=== PATIENT | female | born 1955 | race Caucasian/White ===

== ENCOUNTER → 2017-02-07 | Outpatient (CLI) | payer BC ==
[~2017-02-07] MED LIST: CIPRO500 MG PO; COLACE100 MG PO; FLAGYL500 MG PO; LEVAQUIN25 MG/M1; LEVOFLOXACIN500 MG PO; MIRALAX17 GM/PACK PO; PAXIL10 MG PO; REMERON15 MG
[2017-02-07 13:03] LABS: BASO # 0.1 10*3/uL (0.0-0.1); BASO % 0.9 % (0.0-1.0); EOS # 0.2 10*3/uL (0.0-0.4); EOS % 2.3 % (1.0-4.0); HEMATOCRIT 43.5 % (37.0-47.0); LYMPH # 1.8 10*3/uL (1.3-4.4); LYMPH % 24.2 % (27.0-41.0); MEAN CORPUSCULAR HGB 27.7 pg (27.0-31.0); MEAN CORPUSCULAR HGB CONC 32.2 g/dl (33.0-37.0); MEAN PLATELET VOLUME 9.7 fl (9.6-12.3); MONO # 0.7 10*3/uL (0.1-1.0); MONO % 8.9 % (3.0-9.0); NEUT # 4.7 10*3/uL (2.3-7.9); NEUT % 63.4 % (47.0-73.0); PLATELET COUNT AUTOMATED 239 10*3/uL (130-400); RED BLOOD COUNT 5.06 10*6/uL (4.10-5.10); RED CELL DISTRI WIDTH 12.5 % (0-14.5); WHITE BLOOD COUNT 7.4 10*3/uL (4.8-10.8)
[2017-02-07 13:31] LABS: ALBUMIN 3.8 gm/dl (3.1-4.5); ALKALINE PHOSPHATASE 88 U/L (45-117); BILIRUBIN, TOTAL 0.7 mg/dl (0.2-1.0); BUN 10 mg/dl (7-24); CARBON DIOXIDE 28 mmol/L (21-32); CHLORIDE 108 mmol/L (98-107); CHOLESTEROL 134 mg/dL (<200); EST GLOM FILT AFRICAN AMERICAN > 60 ml/min; GLUCOSE 88 mg/dL (65-99); HDL CHOLESTEROL 42 mg/dl (40-60); LDL CHOLESTEROL 65 mg/dL (9-159); POTASSIUM 4.5 mmol/L (3.5-5.1); SGOT/AST 20 IU/L (3-35); SGPT/ALT 22 U/L (12-78); SODIUM 144 mmol/L (136-145); TOTAL PROTEIN 7.8 gm/dL (6.4-8.2); TRIGLYCERIDES 133 mg/dl (<150); VLDL CHOLESTEROL 27 mg/dL (6-40)
== END | disposition home or self-care (01) ==
LOC: LAB 12:40
PROVIDERS: Family Medicine
DX: Z00.00 Encounter for general adult medical examination without abnormal findings (principal); K57.90 Diverticulosis of intestine, part unspecified, without perforation or abscess without bleeding

== ENCOUNTER 2017-03-22 20:14 | Emergency (ER) | payer BC ==
[~2017-03-22] VITALS: Ht 157.4 cm; Wt 61.2 kg
[2017-03-22] MEDS ORDERED: LEVOTHYROXIN0.025 M1 PO (20:36)
[2017-03-22] MEDS ORDERED: OCEAN104 ML NAS (20:46)
== END 2017-03-22 20:55 | disposition home or self-care (01) ==
LOC: ED 20:14
DX: R04.0 Epistaxis (principal)

== ENCOUNTER 2017-03-24 06:38 | Emergency (ER) | payer BC ==
[~2017-03-24] VITALS: Ht 157.4 cm; Wt 61.2 kg
[~2017-03-24 06:38] MED LIST changes: +LEVOTHYROXIN0.025 M1 PO; +OCEAN104 ML NAS
== END 2017-03-24 08:47 | disposition home or self-care (01) ==
LOC: ED 06:38
DX: R04.0 Epistaxis (principal); Z79.899 Other long term (current) drug therapy

== ENCOUNTER 2017-04-08 14:25 | Emergency (ER) | payer BC ==
[~2017-04-08] VITALS: Ht 157.4 cm; Wt 59.0 kg
[2017-04-08 14:47] LABS: BASO # 0.1 10*3/uL (0.0-0.1); BASO % 0.6 % (0.0-1.0); EOS % 0.3 % (1.0-4.0); HEMATOCRIT 40.1 % (37.0-47.0); HEMOGLOBIN 12.9 g/dl (12.0-16.0); IG # 0.1 10*3/uL (0.0-0.1); LYMPH # 1.1 10*3/uL (1.3-4.4); LYMPH % 9.8 % (27.0-41.0); MEAN CELL VOLUME 86.4 fl (81.0-99.0); MEAN CORPUSCULAR HGB 27.8 pg (27.0-31.0); MEAN CORPUSCULAR HGB CONC 32.2 g/dl (33.0-37.0); MEAN PLATELET VOLUME 9.6 fl (9.6-12.3); MONO # 0.5 10*3/uL (0.1-1.0); MONO % 4.1 % (3.0-9.0); NEUT # 9.6 10*3/uL (2.3-7.9); NEUT % 84.8 % (47.0-73.0); PLATELET COUNT AUTOMATED 323 10*3/uL (130-400); RED BLOOD COUNT 4.64 10*6/uL (4.10-5.10); RED CELL DISTRI WIDTH 13.1 % (0-14.5); WHITE BLOOD COUNT 11.3 10*3/uL (4.8-10.8)
[2017-04-08 14:57] LABS: PROTHROMBIN TIME 10.4 SECONDS (9.0-12.4)
[2017-04-08 15:04] LABS: ALBUMIN 4.2 gm/dl (3.1-4.5); ALKALINE PHOSPHATASE 105 U/L (45-117); BILIRUBIN, TOTAL 0.4 mg/dl (0.2-1.0); BUN 11 mg/dl (7-24); CARBON DIOXIDE 25 mmol/L (21-32); CHLORIDE 105 mmol/L (98-107); EST GLOM FILT AFRICAN AMERICAN > 60 ml/min; GLUCOSE 122 mg/dL (65-99); POTASSIUM 4.1 mmol/L (3.5-5.1); SGOT/AST 19 IU/L (3-35); SGPT/ALT 19 U/L (12-78); SODIUM 139 mmol/L (136-145); TOTAL PROTEIN 8.1 gm/dL (6.4-8.2)
== END 2017-04-08 20:13 | disposition home or self-care (01) ==
LOC: ED 14:25
PROVIDERS: Nurse Practitioner Family
DX: R04.0 Epistaxis (principal); R03.0 Elevated blood-pressure reading, without diagnosis of hypertension; Z79.899 Other long term (current) drug therapy

== ENCOUNTER 2017-04-10 11:31 | Emergency (ER) | payer BC ==
[~2017-04-10] VITALS: Ht 157.4 cm; Wt 59.0 kg
[2017-04-10 12:28] LABS: BASO # 0.1 10*3/uL (0.0-0.1); BASO % 0.5 % (0.0-1.0); EOS % 0.3 % (1.0-4.0); IG # 0.1 10*3/uL (0.0-0.1); LYMPH # 1.1 10*3/uL (1.3-4.4); LYMPH % 10.2 % (27.0-41.0); MEAN CELL VOLUME 84.8 fl (81.0-99.0); MEAN PLATELET VOLUME 9.6 fl (9.6-12.3); MONO # 0.7 10*3/uL (0.1-1.0); MONO % 6.8 % (3.0-9.0); NEUT # 8.4 10*3/uL (2.3-7.9); NEUT % 81.7 % (47.0-73.0); PLATELET COUNT AUTOMATED 243 10*3/uL (130-400); RED BLOOD COUNT 3.82 10*6/uL (4.10-5.10); RED CELL DISTRI WIDTH 12.7 % (0-14.5); WHITE BLOOD COUNT 10.3 10*3/uL (4.8-10.8)
[2017-04-10 12:30] LABS: HEMATOCRIT 32.4 % (37.0-47.0); HEMOGLOBIN 10.7 g/dl (12.0-16.0)
[2017-04-10 12:38] LABS: PROTHROMBIN TIME 10.7 SECONDS (9.0-12.4)
[2017-04-10 12:39] LABS: ALBUMIN 3.7 gm/dl (3.1-4.5); ALKALINE PHOSPHATASE 88 U/L (45-117); BILIRUBIN, TOTAL 0.5 mg/dl (0.2-1.0); BUN 9 mg/dl (7-24); C-REACTIVE PROTEIN 0.43 MG/DL (0-0.3); CARBON DIOXIDE 24 mmol/L (21-32); CHLORIDE 106 mmol/L (98-107); CKMB 0.8 ng/ml (0.5-3.6); CPK 31 U/L (26-192); EST GLOM FILT AFRICAN AMERICAN > 60 ml/min; GLUCOSE 115 mg/dL (65-99); MAGNESIUM 2.1 mg/dL (1.5-2.1); POTASSIUM 3.8 mmol/L (3.5-5.1); SGOT/AST 14 IU/L (3-35); SGPT/ALT 14 U/L (12-78); SODIUM 141 mmol/L (136-145); TOTAL PROTEIN 6.9 gm/dL (6.4-8.2)
[2017-04-10 12:41] LABS: TROPONIN I < 0.015 ng/ml (<0.045)
== END 2017-04-10 13:50 | disposition home or self-care (01) ==
LOC: ED 11:31
PROVIDERS: Emergency Medicine
DX: R04.0 Epistaxis (principal); R55 Syncope and collapse

== ENCOUNTER → 2017-04-18 | Day surgery (SDC) | payer BC ==
[2017-04-13 14:35] LABS: BASO # 0.1 10*3/uL (0.0-0.1); BASO % 0.7 % (0.0-1.0); EOS # 0.1 10*3/uL (0.0-0.4); EOS % 0.9 % (1.0-4.0); HEMATOCRIT 32.1 % (37.0-47.0); HEMOGLOBIN 10.3 g/dl (12.0-16.0); IG # 0.1 10*3/uL (0.0-0.1); LYMPH # 1.6 10*3/uL (1.3-4.4); LYMPH % 17.2 % (27.0-41.0); MEAN CELL VOLUME 88.2 fl (81.0-99.0); MEAN CORPUSCULAR HGB 28.3 pg (27.0-31.0); MEAN CORPUSCULAR HGB CONC 32.1 g/dl (33.0-37.0); MONO # 0.7 10*3/uL (0.1-1.0); MONO % 8.1 % (3.0-9.0); NEUT # 6.7 10*3/uL (2.3-7.9); NEUT % 72.6 % (47.0-73.0); PLATELET COUNT AUTOMATED 313 10*3/uL (130-400); RED BLOOD COUNT 3.64 10*6/uL (4.10-5.10); WHITE BLOOD COUNT 9.2 10*3/uL (4.8-10.8)
[2017-04-13 15:07] LABS: PROTHROMBIN TIME 10.2 SECONDS (9.0-12.4)
[2017-04-18] VITALS (7 sets, daily range): BP systolic 106–131; BP diastolic 61–76
[~2017-04-18] VITALS: Ht 157.4 cm; Wt 59.0 kg
--- NOTE | ~2017-04-18 | O ---
[place], [place] OPERATIVE NOTE NAME: LUCERO MEDINA UNIT #: [id number] ROOM: DOCTOR: LUZMA AGUSTIN MD BIRTHDATE: [birth year] DOS: 04/18/2017 PREOPERATIVE DIAGNOSIS: Recurrent left-sided epistaxis. POSTOPERATIVE DIAGNOSIS: Recurrent left-sided epistaxis. OPERATION: Left endonasal cautery. SURGEON: Dr. Agustin. ANESTHESIA: General. HISTORY: The patient is taken to the operating room for control of epistaxis which was recurrent on the left side. OPERATIVE FINDINGS AND PROCEDURE: Following induction of general anesthesia, the patient was positioned supine on the OR table, prepped and draped in a standard sterile fashion. Examination of the left intranasal region showed hypervascularity of the left anterior septal region. This area was thermally cauterized using electrical cautery. The patient tolerated procedure well. The patient was awakened, extubated and transported to PACU in satisfactory condition. PREOPERATIVE DIAGNOSIS: Please see General. POSTOPERATIVE DIAGNOSIS: Left nasal. LUZMA AGUSTIN MD CM:OPRECORD:OPERATIVE NOTE [id number] LUZMA AGUSTIN MD 05/01/17 1109 interface
== END | disposition home or self-care (01) ==
LOC: SDC 04-13 13:15 → LAB 13:15 → SDC 13:15
PROVIDERS: Specialist
DX: R04.0 Epistaxis (principal); K21.9 Gastro-esophageal reflux disease without esophagitis; I10 Essential (primary) hypertension; J40 Bronchitis, not specified as acute or chronic; E03.9 Hypothyroidism, unspecified; Z98.890 Other specified postprocedural states; Z79.899 Other long term (current) drug therapy; Z87.891 Personal history of nicotine dependence; Z90.710 Acquired absence of both cervix and uterus

== ENCOUNTER → 2018-01-12 | Day surgery (SDC) | payer BC ==
[~2018-01-12] VITALS: Ht 157.4 cm; Wt 59.0 kg
[~2018-01-12] MED LIST changes: +PRILOSEC20 M1 PO
--- NOTE | ~2018-01-12 | PROC NOTE ---
[place], [place] PROCEDURE NOTE [id number] UNIT #: [id number] ROOM: DOCTOR: FRANCISCO PADILLA MD BIRTHDATE: [birth year] DOS: PROCEDURE: 1. Esophagogastroduodenoscopy and biopsy. 2. Colonoscopy. INDICATION: GERD with rectal bleed. Informed consent was obtained from the patient after the indication of procedure, the alternatives and potential complications were explained to her. PROCEDURE MEDICATION: Sedation was administered by Anesthesiology Department. SCOPE USED: For upper endoscopy Olympus diagnostic adult upper endoscope GIF-180, depth of insertion was to the descending duodenum. For the colonoscopy, the scope used was Olympus pediatric colonoscope variable stiffness GIF-180, depth of insertion was to the cecum, which was identified by the usual landmarks, the appendiceal orifice, ileocecal valve and triangular fold, in addition to transillumination in the right upper quadrant. FINDINGS: After adequate sedation, the patient was placed in left lateral decubitus position. Upper endoscopy was performed first. Scope was introduced under direct visualization through the upper esophageal sphincter into the esophagus. Esophageal mucosa showed evidence of grade 2 erosive esophagitis. GE junction was identified at 35 cm from incisors. Stomach was then intubated. Gastric mucosa inspected. Moderate gastritis was seen. No discrete ulcers or active bleeding. Retroflexed views in the fundus showed a grade 2 hiatal hernia. Pylorus was intubated easily. The duodenal bulb and descending duodenum were within normal range. Scope was then withdrawn after the stomach was decompressed. We then proceeded with the colonoscopy. Rectal examination showed diminished sphincter tone and no external hemorrhoids. Scope was introduced into the rectum, then advanced to the cecum with marked difficulty due to fixed sigmoid loops and looping in the left colon. The prep was adequate. Extensive left-sided diverticular disease was seen with no acute diverticulitis or diverticular hemorrhage. The remaining colon mucosa appeared otherwise normal with no evidence of polyps, ulcerations or obstructing lesions. Retroflexed views in the rectum showed grade 2 internal hemorrhoids. Scope was then withdrawn after the rectum was decompressed. The patient tolerated the procedures well. IMPRESSION: 1. Moderate hiatal hernia. 2. Moderate erosive esophagitis. 3. Gastritis, PRISCILLA test performed. 4. Extensive left-sided diverticular disease. 5. Internal hemorrhoids. 6. Normal colon mucosa. No polyps seen. PLAN: We will start omeprazole 40 mg daily, review the PRISCILLA test results and [place], [place] PROCEDURE NOTE NAME: LUCERO MEDINA UNIT #: [id number] ROOM: DOCTOR: VALERIE PETERSON,FRANCISCO BIRTHDATE: [birth year] treat the patient accordingly. The patient was advised to follow a high fiber diet and use fiber supplements daily. Repeat screening colonoscopy is recommended in 10 years. FRANCISCO PADILLA MD CM:PROCNOTE:PROCEDURE NOTE [id number] MAGDI PADILLA MD
[2018-01-12 07:25] VITALS: BP 130/76
[2018-01-12 09:09] VITALS: BP 132/71; BP 137/80
[2018-01-12 09:31] VITALS: BP 130/80
== END | disposition home or self-care (01) ==
LOC: SDC 01-09 08:00
DX: K57.30 Diverticulosis of large intestine without perforation or abscess without bleeding (principal); K64.8 Other hemorrhoids; K29.70 Gastritis, unspecified, without bleeding; I10 Essential (primary) hypertension; K21.0 Gastro-esophageal reflux disease with esophagitis; Z87.891 Personal history of nicotine dependence; E07.9 Disorder of thyroid, unspecified; Z98.890 Other specified postprocedural states; Z82.49 Family history of ischemic heart disease and other diseases of the circulatory system

== ENCOUNTER → 2018-03-01 | Outpatient (CLI) | payer BC ==
[2018-03-01 12:05] LABS: BASO # 0.1 10*3/uL (0.0-0.1); BASO % 0.8 % (0.0-1.0); EOS # 0.2 10*3/uL (0.0-0.4); EOS % 3.1 % (1.0-4.0); HEMATOCRIT 41.4 % (37.0-47.0); HEMOGLOBIN 13.2 g/dl (12.0-16.0); LYMPH # 1.3 10*3/uL (1.3-4.4); LYMPH % 21.7 % (27.0-41.0); MEAN CORPUSCULAR HGB 27.7 pg (27.0-31.0); MEAN CORPUSCULAR HGB CONC 31.9 g/dl (33.0-37.0); MEAN PLATELET VOLUME 9.6 fl (9.6-12.3); MONO # 0.6 10*3/uL (0.1-1.0); MONO % 9.5 % (3.0-9.0); NEUT % 64.7 % (47.0-73.0); PLATELET COUNT AUTOMATED 220 10*3/uL (130-400); RED BLOOD COUNT 4.76 10*6/uL (4.10-5.10); RED CELL DISTRI WIDTH 12.8 % (0-14.5); WHITE BLOOD COUNT 6.1 10*3/uL (4.8-10.8)
[2018-03-01 12:37] LABS: ALBUMIN 3.9 gm/dl (3.1-4.5); BUN 12 mg/dl (7-24); CHLORIDE 103 mmol/L (98-107); CREATININE 0.81 mg/dL (0.55-1.02); POTASSIUM 3.9 mmol/L (3.5-5.1); SGOT/AST 23 IU/L (3-35); SGPT/ALT 21 U/L (12-78); SODIUM 138 mmol/L (136-145); TOTAL PROTEIN 7.6 gm/dL (6.4-8.2)
[2018-03-01 12:47] LABS: ALKALINE PHOSPHATASE 106 U/L (45-117); FREE T4 1.01 ng/dl (0.76-1.46)
== END | disposition home or self-care (01) ==
LOC: LAB 11:37
PROVIDERS: Registered Nurse Flight
DX: E03.9 Hypothyroidism, unspecified (principal)

== ENCOUNTER → 2018-06-04 | Outpatient (CLI) | payer BC | END | disposition home or self-care (01) | LOC: LAB 15:40 | DX: E03.9 Hypothyroidism, unspecified (principal) ==

== ENCOUNTER → 2019-07-02 | Outpatient (CLI) | payer BC ==
[2019-07-02 14:02] LABS: HEMATOCRIT 42.3 % (37.0-47.0); HEMOGLOBIN 13.8 g/dl (12.0-16.0); MEAN CORPUSCULAR HGB CONC 32.6 g/dl (33.0-37.0); MEAN PLATELET VOLUME 9.3 fl (9.6-12.3); RED BLOOD COUNT 4.92 10*6/uL (4.10-5.10); RED CELL DISTRI WIDTH 13.1 % (0-14.5); WHITE BLOOD COUNT 7.7 10*3/uL (4.8-10.8)
[2019-07-02 14:31] LABS: ALBUMIN 3.8 gm/dl (3.1-4.5); ALKALINE PHOSPHATASE 125 U/L (45-117); BUN 9 mg/dl (7-24); CHLORIDE 107 mmol/L (98-107); CHOLESTEROL 145 mg/dL (<200); CREATININE 0.78 mg/dL (0.55-1.02); HDL CHOLESTEROL 41 mg/dl (40-60); LDL CHOLESTEROL 81 mg/dL (9-159); POTASSIUM 4.3 mmol/L (3.5-5.1); SGOT/AST 17 IU/L (3-35); SGPT/ALT 21 U/L (12-78); SODIUM 141 mmol/L (136-145); TOTAL PROTEIN 7.7 gm/dL (6.4-8.2); TRIGLYCERIDES 115 mg/dl (<150); VLDL CHOLESTEROL 23 mg/dL (6-40)
== END | disposition home or self-care (01) ==
LOC: LAB 13:46
PROVIDERS: Registered Nurse Flight
DX: Z13.220 Encounter for screening for lipoid disorders (principal); E03.9 Hypothyroidism, unspecified

== ENCOUNTER → 2020-04-23 | Outpatient (CLI) | payer BC | END | disposition home or self-care (01) | LOC: LAB 10:37 → MAMMO 11:30 | DX: Z12.31 Encounter for screening mammogram for malignant neoplasm of breast (principal); E03.9 Hypothyroidism, unspecified ==

== ENCOUNTER → 2021-06-03 | Outpatient (CLI) | payer OTHER ==
[2021-06-03 12:20] LABS: HEMATOCRIT 42.1 % (37.0-47.0); MEAN CELL VOLUME 85.2 fl (81.0-99.0); MEAN CORPUSCULAR HGB 26.7 pg (27.0-31.0); MEAN CORPUSCULAR HGB CONC 31.4 g/dl (33.0-37.0); MEAN PLATELET VOLUME 9.6 fl (9.6-12.3); RED BLOOD COUNT 4.94 10*6/uL (4.10-5.10); WHITE BLOOD COUNT 7.4 10*3/uL (4.8-10.8)
[2021-06-03 13:34] LABS: BUN 10 mg/dl (7-24); CHLORIDE 106 mmol/L (98-107); SODIUM 135 mmol/L (136-145)
[2021-06-03 13:39] LABS: ALKALINE PHOSPHATASE 110 U/L (45-117); CHOLESTEROL 163 mg/dL (<200); CREATININE 0.67 mg/dL (0.55-1.02); SGOT/AST 17 IU/L (3-35); SGPT/ALT 19 U/L (12-78); TOTAL PROTEIN 7.9 gm/dL (6.4-8.2); TRIGLYCERIDES 149 mg/dl (<150)
[2021-06-03 13:45] LABS: FREE T4 1.27 ng/dl (0.76-1.46); LDL CHOLESTEROL 96 mg/dL (9-159)
[2021-06-03 14:13] LABS: VITAMIN D, 25-HYDROXY 28.3 ng/mL (30-100)
[2021-06-04 09:07] LABS: H PYLORI IGG AB 0.27 (0.00-0.79)
== END | disposition home or self-care (01) ==
LOC: LAB 11:53
PROVIDERS: ATTEND Family Medicine
DX: Z13.220 Encounter for screening for lipoid disorders (principal); K21.9 Gastro-esophageal reflux disease without esophagitis; E03.9 Hypothyroidism, unspecified; E55.9 Vitamin D deficiency, unspecified; R53.83 Other fatigue

== ENCOUNTER → 2021-07-15 | Outpatient (CLI) | payer OTHER ==
[2021-07-15 11:02] LABS: FREE T4 1.03 ng/dl (0.76-1.46)
[2021-07-15 11:08] LABS: THYROID STIM HORMONE (HS) 3.69 uIU/ml (0.358-4.75)
== END | disposition home or self-care (01) ==
LOC: LAB 10:21
PROVIDERS: ATTEND Family Medicine
DX: E03.9 Hypothyroidism, unspecified (principal)

== ENCOUNTER → 2021-09-06 | Outpatient (CLI) | payer OTHER | END | disposition home or self-care (01) | LOC: MAMMO 00:11 | PROVIDERS: ATTEND Family Medicine | DX: Z12.31 Encounter for screening mammogram for malignant neoplasm of breast (principal); N64.89 Other specified disorders of breast ==

== ENCOUNTER → 2021-10-06 | Outpatient (CLI) | payer OTHER | END | disposition home or self-care (01) | LOC: RAD 08:25 | PROVIDERS: ATTEND Family Medicine | DX: M85.88 Other specified disorders of bone density and structure, other site (principal); M81.0 Age-related osteoporosis without current pathological fracture ==

== ENCOUNTER → 2022-08-22 | Outpatient (CLI) | payer OTHER ==
[2022-08-22 10:12] LABS: HEMATOCRIT 44.7 % (37.0-47.0); MEAN CORPUSCULAR HGB 27.8 pg (27.0-31.0); MEAN PLATELET VOLUME 9.7 fl (9.6-12.3); RED BLOOD COUNT 5.14 10*6/uL (4.10-5.10); RED CELL DISTRI WIDTH 12.5 % (0-14.5); WHITE BLOOD COUNT 7.5 10*3/uL (4.8-10.8)
[2022-08-22 10:43] LABS: BUN 10 mg/dl (7-24); CHLORIDE 107 mmol/L (98-107); POTASSIUM 4.4 mmol/L (3.5-5.1); SODIUM 139 mmol/L (136-145)
[2022-08-22 10:49] LABS: ALKALINE PHOSPHATASE 104 U/L (45-117); CHOLESTEROL 153 mg/dL (<200); CREATININE 0.77 mg/dL (0.55-1.02); LDL CHOLESTEROL 86 mg/dL (9-159); SGOT/AST 18 IU/L (3-35); SGPT/ALT 23 U/L (12-78); TOTAL PROTEIN 7.7 gm/dL (6.4-8.2); TRIGLYCERIDES 147 mg/dl (<150)
[2022-08-22 11:12] LABS: VITAMIN D, 25-HYDROXY 34.5 ng/mL (30-100)
== END | disposition home or self-care (01) ==
LOC: LAB 09:14
PROVIDERS: ATTEND Family Medicine
DX: M25.561 Pain in right knee (principal); E55.9 Vitamin D deficiency, unspecified; R53.83 Other fatigue; Z79.899 Other long term (current) drug therapy

== ENCOUNTER → 2022-09-26 | Day surgery (SDC) | payer OTHER ==
[~2022-09-26] VITALS: Ht 157.4 cm; Wt 61.2 kg
[~2022-09-26] MED LIST changes: +CARAFATE1 G1 PO
[2022-09-26 08:15] VITALS: BP 124/75
[2022-09-26 09:13] VITALS: BP 117/73
[2022-09-26 09:28] VITALS: BP 125/83
[2022-09-26 09:43] VITALS: BP 115/89
[2022-09-26 09:57] VITALS: BP 127/57
== END | disposition home or self-care (01) ==
LOC: SDC 09-22 08:45
PROVIDERS: ATTEND Surgery
DX: Z12.11 Encounter for screening for malignant neoplasm of colon (principal); K29.50 Unspecified chronic gastritis without bleeding; K22.10 Ulcer of esophagus without bleeding; K21.00 Gastro-esophageal reflux disease with esophagitis, without bleeding; K44.9 Diaphragmatic hernia without obstruction or gangrene; K57.30 Diverticulosis of large intestine without perforation or abscess without bleeding; Z79.899 Other long term (current) drug therapy; Z98.890 Other specified postprocedural states

== ENCOUNTER → 2023-04-14 | Outpatient (CLI) | payer OTHER ==
[2023-04-14 10:16] LABS: HEMATOCRIT 43.1 % (37.0-47.0); MEAN CELL VOLUME 87.6 fl (81.0-99.0); MEAN CORPUSCULAR HGB 27.8 pg (27.0-31.0); MEAN CORPUSCULAR HGB CONC 31.8 g/dl (33.0-37.0); MEAN PLATELET VOLUME 9.4 fl (9.6-12.3); RED BLOOD COUNT 4.92 10*6/uL (4.10-5.10); RED CELL DISTRI WIDTH 12.7 % (0-14.5); WHITE BLOOD COUNT 6.4 10*3/uL (4.8-10.8)
[2023-04-14 10:43] LABS: ALKALINE PHOSPHATASE 93 U/L (46-116); BUN 10 mg/dl (9-23); CHLORIDE 107 mmol/L (98-107); CHOLESTEROL 151 mg/dL (<200); LDL CHOLESTEROL 86 mg/dL (9-159); POTASSIUM 4.4 mmol/L (3.4-5.1); SGPT/ALT 13 U/L (10-49); THYROID STIM HORMONE (HS) 4.835 uIU/ml (0.550-4.780); TOTAL PROTEIN 7.3 gm/dL (6.0-8.0); TRIGLYCERIDES 110 mg/dl (<150); VITAMIN D, 25-HYDROXY 33.3 ng/mL (30-100)
== END | disposition home or self-care (01) ==
LOC: LAB 09:45
PROVIDERS: ATTEND Family Medicine
DX: R53.83 Other fatigue (principal); E55.9 Vitamin D deficiency, unspecified; D64.9 Anemia, unspecified; E78.5 Hyperlipidemia, unspecified

== ENCOUNTER → 2024-02-09 | Outpatient (CLI) | payer OTHER | END | disposition home or self-care (01) | LOC: US 13:07 | PROVIDERS: ATTEND Family Medicine | DX: I73.9 Peripheral vascular disease, unspecified (principal) ==

== ENCOUNTER → 2024-12-30 | Outpatient (CLI) | payer OTHER | END | disposition home or self-care (01) | LOC: MAMMO 08:29 | PROVIDERS: ATTEND Family Medicine | DX: Z12.31 Encounter for screening mammogram for malignant neoplasm of breast (principal); R92.333 Mammographic heterogeneous density, bilateral breasts ==